=== PATIENT | female | born 1995 | race Caucasian/White ===

== ENCOUNTER 2017-08-24 10:39 | Emergency (ER) | payer OTHER ==
[~2017-08-24] VITALS: Ht 160 cm; Wt 63.6 kg
[2017-08-24 10:46] VITALS: BP 122/86; PULSE 105; TEMP 36.9; O2SAT 98; Ht 160 cm; Wt 63.6 kg
[2017-08-24] MEDS ORDERED: DOXY100C PO (11:21)
--- NOTE | 2017-08-24 11:23 | EMERGENCY ROOM VISIT NOTE ---
History First contact with patient: 11:01 Chief Complaint: ARM PAIN Stated Complaint: SWOLLEN ARM History of Present Illness The patient is a 22 year old female who presents to the Emergency Room with complaints of redness and swelling of her right upper arm. The patient reports that she received a tetanus vaccine 6 days ago. Shortly after that, she developed redness at the site of the injection. She states the redness has been worsening over the past 2 days and has been spreading up and down her arm. She states it is painful and rates the discomfort a 4/10. The pain is worsened with movement of the arm or touching the area. She describes the pain as a burning sensation. She denies any fevers. Review of Systems A complete 10 point review of systems was reviewed with the patient with pertinent positives and negatives as per history of present illness. All else were negative. Past Medical/Surgical History Medical Problems: (1) Asthma Surgical Problems: (1) History of section (2) History of tubal ligation (3) History of wisdom tooth extraction Social History Smoking Status: Never Smoker Alcohol Use: occasionally Marital Status: Housing Status: lives with family Current/Historical Medications Scheduled Doxycycline Hyclate (Vibramycin), 100 MG PO BID Fluconazole (Diflucan), 150 MG PO DAILY Physical Exam Vital Signs Date Time Temp Pulse Resp B/P (MAP) Pulse Ox O2 Delivery O2 Flow Rate FiO2 08/24/17 10:46 36.9 105 18 122/86 98 Physical Exam VITALS: Vitals are noted on the nurse's note and reviewed by myself. Vital signs stable. GENERAL: This is a 22-year-old female, in no acute distress, well-developed well -nourished. SKIN: There is erythema with mild warmth and induration to the right upper arm. There is no lymphangitic streaking or fluctuance. MUSCULOSKELETAL: Full range of motion of the right shoulder and elbow. NEURO: Patient was alert and oriented to person place and time. Normal sensation. Medical Decision & Procedures Medical Decision Differential diagnosis includes local vaccine reaction, abscess, cellulitis, among others. The patient was evaluated as above. She has some redness and swelling of the right upper arm where she received a tetanus vaccine recently. This may be due to a local reaction from the vaccine or possibly an early cellulitis. As the patient has had symptoms for almost 1 week, I do feel it is reasonable to cover her with a course of antibiotics. She reports she has a severe penicillin allergy and is unsure if she is able to take cephalosporins. For this reason, she will be placed on doxycycline. She was given a prescription for Diflucan as she states she often gets yeast infections when taking antibiotics. She was instructed to follow-up with her primary care provider and return here for worsening of her symptoms. She verbalized understanding of my assessment and treatment plan and was discharged home in good condition. Medication Reconcilliation Current Medication List: was personally reviewed by me Blood Pressure Screening Patient's blood pressure: Normal blood pressure Impression Primary Impression: Cellulitis of upper arm Departure Information Dispostion Home / Self-Care Condition GOOD Prescriptions Fluconazole (DIFLUCAN) 150 Mg Tab 150 MG PO DAILY for 1 Day, #1 TAB Prov: Shell Baez PA-C 08/24/17 Doxycycline Hyclate (VIBRAMYCIN) 100 Mg Cap 100 MG PO BID for 10 Days, #20 CAP Prov: Shell Baez PA-C 08/24/17 Referrals Carlos Alberto Robbins M.D. (PCP) Patient Instructions [facility] Additional Instructions You were prescribed doxycycline to be taken as prescribed. This is an antibiotic. All antibiotics have the potential to cause diarrhea. Stop this medication and contact a medical provider if you were to develop any significant adverse side effects including: wheezing, shortness of breath, passing out, vomiting, or a diffuse rash. Always take antibiotics as directed and COMPLETE the ENTIRE course regardless of the improvement of your symptoms. For pain control, you can use the following [id number] medicines (if >12 yo): - Regular strength (325mg/tab) Tylenol (acetaminophen) 2 tabs every 4-6 hours as needed. Do not exceed 12 tablets in a 24 hour period. Avoid taking more than 4 grams (4000 mg) of Tylenol per day. This includes any other sources of acetaminophen you may take on a regular basis. - Regular strength (200 mg/tab) Advil (ibuprofen) 1-2 tabs every 4-6 hours as needed. Do not exceed a dose of 3200 mg per day. Follow-up with your primary care provider within 2-3 days for a recheck. Return to the emergency department with worsening redness, swelling, drainage from the area, fevers or other new/concerning symptoms.
[2017-08-24] MEDS ORDERED: FLUC150T PO (11:40)
== END 2017-08-24 11:32 | disposition home or self-care (01) ==
LOC: C.EDB 10:40 → C.EDD 11:32
DX: L03.113 Cellulitis of right upper limb (principal); J45.909 Unspecified asthma, uncomplicated